=== PATIENT | female | born 1990 | race Caucasian/White ===

== ENCOUNTER 2017-03-03 23:37 | Emergency (ER) | payer OTHER ==
[~2017-03-03] VITALS: Ht 160 cm; Wt 72.7 kg
[~2017-03-03 23:37] MED LIST: AMOXICILLIN875 MG PO; CIPRO 500MG TA500 MG PO; PRENATAL1 TA1 PO; PYRIDIUM200 M1 PO; STRATTERA 40MG40 MG PO
[2017-03-03 23:39] VITALS: TEMP 98.2
[2017-03-03] MEDS ORDERED: CONCEPT DHA1 CAP PO (23:41)
[2017-03-04 00:26] LABS: BASO # 0.1 (0.0-0.2); BASO % 0.7 % (0.0-2.0); EOS # 0.3 (0.0-0.7); EOS % 3.1 % (0-4.0); GRAN # 4.6 (1.4-6.5); GRAN % 54.8 % (42.2-75.2); LYMPH # 2.8 (1.2-3.4); LYMPH % 32.9 % (20.0-51.0); MEAN CELL VOLUME 89 fl (80.0-100.0); MEAN CORPUSCULAR HGB CONC 33 g/dl (33.0-37.0); MEAN PLATELET VOLUME 11.5 fl (7.4-10.4); MONO # 0.5 (0.1-0.6); MONO % 6.1 % (1.7-9.3); PLATELET COUNT 185 K/mm3 (130-400); RED BLOOD COUNT 3.83 M/mm3 (4.10-5.30); REDCELL DISTRIBUTION WIDTH-CV 13.2 % (11.5-14.5); WHITE BLOOD COUNT 8.4 K/mm3 (4.8-10.8)
[2017-03-04 00:28] LABS: HEMATOCRIT 34.1 % (37.0-47.0); HEMOGLOBIN 11.2 g/dl (12.5-16.0); MEAN CORPUSCULAR HEMOGLOBIN 29 pg (27.0-31.0)
[2017-03-04 00:31] LABS: INR 0.9 (0.8-3.0); PROTHROMBIN TIME 9.8 SECONDS (9.7-12.8)
[2017-03-04 00:33] LABS: PARTIAL THROMBOPLASTIN TIME 30.9 SECONDS (26.0-37.0)
[2017-03-04 00:36] LABS: ADJUSTED CALCIUM 9.3 mg/dL (8.4-10.2); ALBUMIN 3.2 gm/dL (3.5-5.0); BILIRUBIN,TOTAL 0.5 mg/dL (0.0-1.0); CALCIUM 8.7 mg/dL (8.4-10.2); CREATININE, serum 0.74 mg/dL (0.52-1.25); POTASSIUM 3.8 mmol/L (3.4-5.0)
[2017-03-04 01:27] VITALS: BP 115/72; PULSE 60
== END 2017-03-04 01:30 | disposition home or self-care (01) ==
LOC: COL.ER 23:37
PROVIDERS: Emergency Medicine
DX: M79.662 Pain in left lower leg (principal); O99.89 Other specified diseases and conditions complicating pregnancy, childbirth and the puerperium

== ENCOUNTER 2019-10-26 14:00 | Emergency (ER) | payer OTHER ==
[~2019-10-26] VITALS: Ht 160 cm; Wt 63.6 kg
[~2019-10-26 14:00] MED LIST changes: +CONCEPT DHA1 CAP PO
[2019-10-26 14:29] VITALS: BP 126/67; TEMP 100.7
[2019-10-26 15:24] VITALS: PULSE 97
== END 2019-10-26 16:23 | disposition home or self-care (01) ==
LOC: COL.ER 14:00
DX: J11.1 Influenza due to unidentified influenza virus with other respiratory manifestations (principal); Z88.2 Allergy status to sulfonamides; Z88.8 Allergy status to other drugs, medicaments and biological substances